=== PATIENT | female | born 1940 | race Caucasian/White ===

== ENCOUNTER 2017-04-25 12:51 | Emergency (ER) | payer MEDICARE ==
[~2017-04-25] VITALS: Ht 160 cm; Wt 71.0 kg
[2017-04-25 13:03] VITALS: BP 183/86; PULSE 70; RESP 16; TEMP 97.7; O2SAT 98
[2017-04-25] MEDS ORDERED: [UNRECOGNIZED DRUG - OTHER] EACH EYE (13:44)
[2017-04-25] MEDS ORDERED: NEXI20CA PO (13:44)
[2017-04-25] MEDS ORDERED: AMLO2.5T PO (13:44)
[2017-04-25] MEDS ORDERED: METO50TA PO (13:44)
[2017-04-25] MEDS ORDERED: ACCU40TA PO (13:44)
[2017-04-25] MEDS ORDERED: ACETAMINOPHEN/HYDROcodone 325 MG/5 MG TAB PO ONE (13:45)
--- NOTE | 2017-04-25 14:04 | RADRPT ---
EXAM DATE/TIME: 04/25/2017 13:52 [place] COMPARISON: No previous studies available for comparison. INDICATIONS : Right rib pain post fall. MEDICAL HISTORY : Hypertension. SURGICAL HISTORY : Cholecystectomy. ENCOUNTER: Initial ACUITY: 1 day PAIN SCORE: 8/10 LOCATION: Right lower ribs FINDINGS: A single view of the chest demonstrates the lungs to be symmetrically aerated without evidence of mas s, infiltrate or effusion. The cardiomediastinal contours are unremarkable. Osseous structures are intact. CONCLUSION: 1. No acute cardiopulmonary disease. 2. No grossly displaced rib fractures. Trevor Allan MD on April 25, 2017 at 14:02 Board Certified Radiologist. This report was verified electronically.
[2017-04-25] MEDS ORDERED: ZOFR4TAB3 SL (14:13)
[2017-04-25] MEDS ORDERED: HYDR-3533 PO (14:13)
--- NOTE | 2017-04-25 14:14 | PD ---
HPI Chief Complaint: Injury Time Seen by Provider: 13:40 Travel History International Travel<30 days: No Contact w/Intl Traveler<30days: No Traveled to known affect area: No History of Present Illness HPI 76-year-old female complains of right lower rib pain after she tripped up on a pillow yesterday evening. She landed with her wrist beneath her right chest wall. Since then she said pleuritic pain. She also had pain or changes in position. No dyspnea. No head injury or loss of consciousness. PFSH Past Medical History GERD: Yes Hypertension: Yes Influenza Vaccination: Yes ?: Not Past Surgical History Cholecystectomy: Yes Eye Surgery: Yes (BILAT CATARACT) Social History Alcohol Use: Yes (OCCAS) Tobacco Use: No Substance Use: No Allergies-Medications (Allergen,Severity, Reaction): Coded Allergies: Penicillins (Verified Allergy, Mild, Hives, 04/25/17) Reported Meds & Prescriptions Reported Meds & Active Scripts Active Zofran Odt (Ondansetron Odt) 4 Mg Tab 4 Mg SL Q8HR PRN Lortab (Hydrocodone-Acetaminophen) 5-325 Mg Tab 1-2 Tab PO Q6H PRN Reported Nexium (Esomeprazole DR) 20 Mg Capdr 20 Mg PO BID [Xildra] 1 Drop EACH EYE BID Metoprolol Tartrate 50 Mg Tab 50 Mg PO BID Amlodipine (Amlodipine Besylate) 2.5 Mg Tab 2.5 Mg PO BID Accupril (Quinapril HCl) 40 Mg Tab 40 Mg PO DAILY Review of Systems General / Constitutional: No: Fever Cardiovascular: Positive: Chest Pain or Discomfort Respiratory: No: Cough, Shortness of Breath Physical Exam Narrative GENERAL: 76-year-old female pleasant well-nourished well-developed SKIN: Warm and dry. HEAD: Normocephalic. EYES: No scleral icterus. No injection or drainage. NECK: Supple, trachea midline. No JVD or lymphadenopathy. CARDIOVASCULAR: Regular rate and rhythm without murmurs, gallops, or rubs. RESPIRATORY: Breath sounds equal bilaterally. No accessory muscle use. GASTROINTESTINAL: Abdomen soft, non-tender, nondistended. MUSCULOSKELETAL: No cyanosis, or edema. BACK: Nontender without obvious deformity. No CVA tenderness. Data Data Last Documented VS Vital Signs Date Time Temp Pulse Resp B/P (MAP) Pulse Ox O2 Delivery O2 Flow Rate FiO2 04/25/17 14:29 16 04/25/17 14:28 04/25/17 13:03 97.7 70 98 Orders Orders Acetamin-Hydrocod 325-5 Mg (Ray 5-325 (04/25/17 13:45) Chest, Single Ap (04/25/17 ) Resp Incentive Spirometry (04/25/17 ) MDM Medical Decision Making Medical Screen Exam Complete: Yes Emergency Medical Condition: Yes Differential Diagnosis NSTEMI, unstable angina, coronary vasospasm, PE, PTX, aortic dissection, pericarditis, myocarditis, endocarditis, PNA, esophageal disease, aneurysm, musculoskeletal etiologies, anxiety, cocaine/sympathomimetic abuse Narrative Course Last 24 hours Impressions Chest X-Ray 04/25/17 0000 Signed Impressions: Service Date/Time: Sunday, April 25, 2017 13:52 - CONCLUSION: 1. No acute cardiopulmonary disease. 2. No grossly displaced rib fractures. Trevor Allan MD The patient is resting comfortably and feels better, is alert and in no distress. The patients results and examination findings were discussed. The repeat examination is unremarkable and benign. The history, exam, diagnostic testing, and current condition do not suggest any significant pathology to warrant further testing, continued ED treatment, admission, or surgical evaluation at this point. The vital signs have been stable. The patient does not have uncontrollable pain, intractable vomiting, or other significant symptoms. The patient's condition is stable and appropriate for discharge. The patient will pursue further outpatient evaluation with a primary care physician or other designated or consulting physician as indicated in the discharge instructions. The patient expressed understanding and was agreeable with this plan. Diagnosis Primary Impression: Fall Qualified Codes: W19.XXXA - Unspecified fall, initial encounter Additional Impression: Contusion of rib on right side Qualified Codes: S20.211A - Contusion of right front wall of thorax, initial encounter Referrals: Primary Care Physician 2 days Additional Instructions: You have a choice when it comes to health care, and we are glad that you chose [facility]. Hopefully, we have met your expectations on today's visit. You are welcome to return to [facility] at any time, as we are committed to meeting the health care needs of our community. Med/Other Pt SpecificInfo: Prescription(s) given Scripts Ondansetron Odt (Zofran Odt) 4 Mg Tab 4 MG SL Q8HR Y for Nausea/Vomiting, #10 TAB 0 Refills Prov: Otto Tucker MD 04/25/17 Hydrocodone-Acetaminophen (Lortab) 5-325 Mg Tab 1-2 TAB PO Q6H Y for PAIN SCALE 6 TO 10, #30 TAB 0 Refills Prov: Otto Tucker MD 04/25/17 Disposition: 01 DISCHARGE HOME Condition: Serious Otto Tucker MD Apr 25, 2017 14:14
[2017-04-25 14:29] VITALS: RESP 16
== END 2017-04-25 15:18 | disposition home or self-care (01) ==
LOC: PHED 12:51
DX: S20.211A Contusion of right front wall of thorax, initial encounter (principal); W01.0XXA Fall on same level from slipping, tripping and stumbling without subsequent striking against object, initial encounter; K21.9 Gastro-esophageal reflux disease without esophagitis; I10 Essential (primary) hypertension
CPT/HCPCS: 71010; 94150; 99284